=== PATIENT | female | born 1960 | race Caucasian/White ===

== ENCOUNTER 2017-03-26 09:11 | Day surgery (SDC) | payer BC, OTHER ==
--- NOTE | 2017-03-26 07:48 | HP ---
DATE OF SURGERY: 03/26/2017 HISTORY OF PRESENT ILLNESS: The patient is a 56 year-old with some persistent lump and discomfort upper abdominal area unclear whether just lipoma versus atypical unusual hernia location. She has increasing symptoms and been persistent. She desires definitive surgery. PAST MEDICAL HISTORY: She had some reflux. PAST SURGICAL HISTORY: Back surgery in the past. MEDICATIONS: Heartburn medication, Xanax and allergy medication. ALLERGIES: NKDA. FAMILY HISTORY: Negative in regards to this problem. SOCIAL HISTORY: Half pack per day smoker, denies alcohol abuse. REVIEW OF SYSTEMS: Twelve systems reviewed per admission assessment. No chest pains or palpitations other systems negative or noncontributory as above and per preadmission questionnaire. She was supposed to have a screening colonoscopy in the past but somehow she did not go through with that and has been rescheduled. PHYSICAL EXAMINATION: GENERAL: No acute distress. HEENT: Sclerae nonicteric. NECK: No JVD. CHEST: Equal excursion, nonlabored breathing. CVS: Regular rate and rhythm. ABDOMEN: Soft. Palpable lump upper abdomen whether is simply lipoma versus some sort of atypical hernia or other etiology is unclear at this point. It is increasing in size and causing her symptoms. She desires exploration of the area. No peritoneal signs. EXTREMITIES: No significant edema. NEURO: Alert, moving extremities symmetrically. No gross motor deficits noted. IMPRESSION: Abdominal wall nodule, question lipoma versus some sort of atypical hernia or other etiology. As she has had increased symptoms of this she would rather proceed with this procedure and reschedule the colonoscopy later. I feel she would benefit from abdominal wall exploration, excision of subcutaneous mass, possible hernia repair with mesh if indicated or present. General risk of bleeding or infection, risk of hematoma or seroma formation, risk if this is a lipoma-type density they usually do not occur but that she could get similar subcu mass or lipoma adjacent to or elsewhere on her body. She understands general risk of hematoma or seroma formation, wound infection possibly requiring packing. She understands should there be an occult hernia in this area with repair there is overall risk of aches, pains, burning or numbness possible long distance operator or chronic in nature, risk of hernia recurrence, risk if the mesh became infected likely would need to be removed, remote risk of mesh fracture or failure possibly creating issue with the viscera, other structures possibly requiring other procedures or ongoing morbidity but not limited to. She understands as well as general risk of anesthesia, deep venous thrombosis, pulmonary embolism, pneumonia and possibility that this may not improve her aches or pains, that she will have scar tissue in the area and may have a density from just scar formation afterwards. She understands all the above but not limited to, increasing in size and causing her discomfort. She prefers to go ahead and proceed with exploration, possible excision, possible hernia repair if hernia is noted, and possible hernia repair with mesh if indicated. Will proceed as an outpatient.
[~2017-03-26 09:11] MED LIST: Lactated Ringers 1,000 ML IV ONE; Sensorcaine 0.25% 10 ML ONE
[2017-03-26] MEDS ORDERED: Versed 2 MG/2 ML Injection IV ONE (09:12)
[2017-03-26] MEDS ORDERED: Zofran 4 MG/2 ML VIAL IV ONE (09:12)
[2017-03-26] MEDS ORDERED: ROBINUL IV ONE (09:12)
[2017-03-26] MEDS ORDERED: BLOXIVERZ IV ONE (09:12)
[2017-03-26] MEDS ORDERED: Zemuron 100 MG/10 ML IV ONE (09:12)
[2017-03-26] MEDS ORDERED: Quelicin Fliptop 200 MG/10 ML IV ONE (09:12)
[2017-03-26] MEDS ORDERED: DIPRIVAN 200 MG/20 ML IV ONE (09:12)
[2017-03-26] MEDS ORDERED: Decadron 4 MG INJ IV ONE (09:12)
[2017-03-26] MEDS ORDERED: SUBLIMAZE 250 MCG/5 ML IV ONE (09:12)
[2017-03-26] MEDS ORDERED: Lactated Ringers 1,000 ML IV SCH (10:00)
[2017-03-26] MEDS ORDERED: Lactated Ringers 1,000 ML IV ONE (10:00)
[2017-03-26] MEDS ORDERED: KEFZOL 1 GM ONE (11:17)
[2017-03-26] MEDS ORDERED: MORPHINE SULFATE 10 MG/ML ONE (12:21)
[2017-03-26] MEDS ORDERED: SUBLIMAZE 100 MCG/2 ML ONE (12:21)
[2017-03-26 14:14] VITALS: O2SAT 95
[2017-03-26 14:18] VITALS: BP 147/81; PULSE 59
--- NOTE | 2017-03-27 08:08 | OP ---
SURGERY DATE/TIME: 03/26/2017 1112 PREOPERATIVE DIAGNOSIS: Abdominal wall nodule or bulge question of occult hernia versus lymphoma. POSTOPERATIVE DIAGNOSIS: Incarcerated ventral hernia epigastrium. PROCEDURE: Abdominal wall exploration with repair of incarcerated epigastric ventral hernia with mesh. SURGEON: Dr. Andrew Perkins. ANESTHESIA: General. ESTIMATED BLOOD LOSS: Minimal. INDICATIONS: As noted above. Risks and benefits explained in detail and not limited to and consent obtained. DESCRIPTION OF PROCEDURE AND FINDINGS: The patient is taken to the operating room. General anesthesia was introduced. The site had been confirmed with the patient in the preoperative holding area. General anesthesia was induced. The abdomen was prepped and draped in usual sterile fashion. After official time out and no disagreement with planned procedure, a transverse incision made over the area. Inflator enlarged a little bit to allow for greater exposure. Dissection carried down. It was unclear if this was a lipoma density versus a little bit of denser fat tissue over the top. We came in with a deeper dissection over the deep incarcerated epigastric ventral hernia with incarcerated preperitoneal fat and omentum this is carefully circumferentially the minimal lipoma density over the top was passed off. Dissection carried circumferentially around this incarcerated epigastric ventral hernia in order to reduce this it required enlarging the defect slightly laterally. Finally the preperitoneal omental fat and incarcerated contents were able to finally be reduced back down in the abdomen. Once this was accomplished I felt the defect was large enough to warrant mesh repair to decrease risk of recurrence. 4.3 Ventralex mesh was then carefully inserted with straps pulled upwards. The tails of the mesh is nice and flat circumferentially around it. It was secured a centimeter apart around the edges with interrupted 0 Prolene this was accomplished with interrupted 0 PDS used to close the fascia overlying the mesh with interrupted 0 PDS. 0.25% Marcaine local injected along the fascial defect along the skin incision. The wound is irrigated out. Good hemostasis noted. Deep superficial subcu closed with 3-0 Vicryl, skin closed with 4-0 Vicryl, Steri-Strips and sterile dressing applied. The patient was given abdominal binder. There were no immediate complications. Findings discussed with the family out in the waiting area. She is to avoid heavy lifting, pushing, pulling for the next six weeks to decrease the risk of recurrence otherwise she was transferred to the recovery room and later to be discharged home.
== END 2017-03-26 13:55 | disposition home or self-care (01) ==
LOC: SDC 09:11
PROVIDERS: ATTEND Surgery
PROC: 0WUF0JZ Supplement Abdominal Wall with Synthetic Substitute, Open Approach (ICD-10-PCS; principal; 2017-03-26)
DX: K43.9 Ventral hernia without obstruction or gangrene (principal)
CPT/HCPCS: 00752; 36415; 88304; J0330; J0690; J1100; J2250; J2270; J2405; J2704; J2710; J3010; L0625

== ENCOUNTER 2020-10-27 08:11 | Day surgery (SDC) | payer OTHER ==
[2020-10-27] MEDS ORDERED: Depo-Medrol 40 MG/ML IM ONE (08:12)
[2020-10-27] MEDS ORDERED: BUPIVACAINE 0.5% VIAL IJ ONE (08:12)
[2020-10-27] MEDS ORDERED: DIPRIVAN 200 MG/20 ML IV ONE (09:04)
--- NOTE | 2020-10-27 10:08 | XRAY ---
19 seconds fluoroscopy time in surgery for right intra-articular and bursa injections of the right hip.
--- NOTE | 2020-10-27 10:19 | XRAY ---
Indication: Right hip injection. Intraoperative fluoroscopy provided for 19 seconds. 2 digital spot images submitted for interpretation demonstrates needle tip just lateral to the right femur head. Second needle tip lateral to the greater trochanter. Small amount of contrast injected for both needle tip placement. Correlate with intraoperative findings/report.
[2020-10-27] MEDS ORDERED: Lactated Ringers 1,000 ML IV ONE (16:08)
== END 2020-10-27 09:28 | disposition home or self-care (01) ==
LOC: SDC-PAIN 08:11
PROVIDERS: ATTEND Psychiatry & Neurology Pain Medicine
DX: M16.11 Unilateral primary osteoarthritis, right hip (principal); M70.61 Trochanteric bursitis, right hip; J44.9 Chronic obstructive pulmonary disease, unspecified; E78.5 Hyperlipidemia, unspecified; F41.1 Generalized anxiety disorder; K21.9 Gastro-esophageal reflux disease without esophagitis; J30.2 Other seasonal allergic rhinitis; Z79.899 Other long term (current) drug therapy
CPT/HCPCS: 20610; 73501; 77002; J1030; J2704; Q9966

== ENCOUNTER 2020-12-15 13:36 | Day surgery (SDC) | payer OTHER ==
[2020-12-15] MEDS ORDERED: BUPIVACAINE 0.5% VIAL IJ ONE (13:37)
[2020-12-15] MEDS ORDERED: Depo-Medrol 40 MG/ML IM ONE (13:37)
[2020-12-15] MEDS ORDERED: DIPRIVAN 200 MG/20 ML IV ONE (15:10)
[2020-12-15] MEDS ORDERED: Lactated Ringers 1,000 ML IV ONE (15:58)
--- NOTE | 2020-12-15 17:40 | XRAY ---
Indication: Bilateral SI joint injections. Intraoperative fluoroscopy provided for 23 seconds. 4 digital spot images submitted for interpretation demonstrates posterior needle tip projecting over the inferior left and right SI joints. Correlate with intraoperative findings/report.
--- NOTE | 2020-12-16 09:21 | XRAY ---
23 seconds fluoroscopy time in surgery for bilateral SI joint injections.
== END 2020-12-15 15:40 | disposition home or self-care (01) ==
LOC: SDC-PAIN 13:36
PROVIDERS: ATTEND Psychiatry & Neurology Pain Medicine
DX: M46.1 Sacroiliitis, not elsewhere classified (principal); F41.9 Anxiety disorder, unspecified; E78.5 Hyperlipidemia, unspecified; K21.9 Gastro-esophageal reflux disease without esophagitis; F32.9 Major depressive disorder, single episode, unspecified; M10.9 Gout, unspecified; J44.9 Chronic obstructive pulmonary disease, unspecified; Z79.899 Other long term (current) drug therapy
CPT/HCPCS: 27096; 72202; 77002; G0260; J1030; J2704

== ENCOUNTER 2021-02-02 09:55 | Day surgery (SDC) | payer OTHER ==
[2021-02-02] MEDS ORDERED: LIDOCAINE HCL 2% 100 MG/5 ML IJ ONE (09:56)
[2021-02-02] MEDS ORDERED: DIPRIVAN 200 MG/20 ML IV ONE (11:42)
[2021-02-02] MEDS ORDERED: Lactated Ringers 1,000 ML IV ONE ×2 (12:04→15:54)
--- NOTE | 2021-02-02 13:18 | XRAY ---
Indication: Right L3-S1 MBB. Intraoperative fluoroscopy provided for 11 seconds. Single digital spot image submitted for interpretation demonstrates posterior needle tips projecting over the expected right L3-S1 nerve roots. Correlate with intraoperative findings/report.
--- NOTE | 2021-02-02 13:21 | XRAY ---
11 seconds fluoroscopy time in surgery for right L3-S1 MBB.
== END 2021-02-02 12:27 | disposition home or self-care (01) ==
LOC: SDC-PAIN 09:55
PROVIDERS: ATTEND Psychiatry & Neurology Pain Medicine
DX: M47.816 Spondylosis without myelopathy or radiculopathy, lumbar region (principal); Z79.899 Other long term (current) drug therapy
CPT/HCPCS: 64493; 64494; 64495; 72020; 77002; J2704

== ENCOUNTER 2021-03-30 14:38 | Day surgery (SDC) | payer OTHER ==
[2021-03-30] MEDS ORDERED: Depo-Medrol 40 MG/ML IM ONE (14:39)
[2021-03-30] MEDS ORDERED: BUPIVACAINE 0.5% VIAL IJ ONE (14:39)
[2021-03-30] MEDS ORDERED: Xylocaine 1% Vial 30 ML PF IJ ONE (14:39)
[2021-03-30] MEDS ORDERED: Lactated Ringers 1,000 ML IV ONE (15:50)
--- NOTE | 2021-03-30 16:43 | XRAY ---
21 seconds fluoroscopy time in surgery for injection of the right SI joint.
--- NOTE | 2021-03-30 16:51 | XRAY ---
Indication: Right SI joint injection. Intraoperative fluoroscopy provided for 21 seconds. Single lateral digital spot image submitted for interpretation demonstrates posterior needle tip projecting mid sacrum. Correlate with intraoperative findings/report.
== END 2021-03-30 16:35 | disposition home or self-care (01) ==
LOC: SDC-PAIN 14:38
PROVIDERS: ATTEND Psychiatry & Neurology Pain Medicine
DX: M46.1 Sacroiliitis, not elsewhere classified (principal); Z79.899 Other long term (current) drug therapy
CPT/HCPCS: 27096; 72020; 77002; G0260; J1030; J2001

== ENCOUNTER 2021-04-13 14:33 | Day surgery (SDC) | payer OTHER ==
[2021-04-13] MEDS ORDERED: Sodium Chloride 0.9(Preservative Free) 10 ML IJ ONE (14:34)
[2021-04-13] MEDS ORDERED: Depo-Medrol 80 MG/ML IM ONE (14:34)
[2021-04-13] MEDS ORDERED: DIPRIVAN 200 MG/20 ML IV ONE (16:15)
[2021-04-13] MEDS ORDERED: Lactated Ringers 1,000 ML IV ONE (17:30)
--- NOTE | 2021-04-13 18:26 | XRAY ---
Indication: Caudal EVELYN. Intraoperative fluoroscopy provided for 22 seconds. 2 digital spot image submitted for interpretation demonstrates midline caudal needle tip projecting mid sacrum. Small amount of contrast injected for needle tip placement. Correlate with intraoperative findings/report.
--- NOTE | 2021-04-13 19:01 | XRAY ---
22 seconds of fluoroscopy was used in surgery for a caudal EVELYN.
== END 2021-04-13 16:42 | disposition home or self-care (01) ==
LOC: SDC-PAIN 14:33
PROVIDERS: ATTEND Psychiatry & Neurology Pain Medicine
DX: M54.16 Radiculopathy, lumbar region (principal); Z79.899 Other long term (current) drug therapy
CPT/HCPCS: 62323; 72020; 77003; J1040; J2704; Q9966

== ENCOUNTER 2021-04-25 17:34 | Emergency (ER) | payer OTHER ==
[2021-04-25 17:50] VITALS: BP 107/82; PULSE 78
--- NOTE | 2021-04-25 18:02 | ERPHSYRPT ---
- History of Present Illness Source: patient Exam Limitations: no limitations Patient Subjective Stated Complaint: pt has rash on bottom since sunday, she thinks it might be posion milly Triage Nursing Assessment: pt alert, resp easy, skin w/d/p, face mask in place, pt has reddenss to right bottuck Physician History: Lesion R buttock x 3 days. Pt denies fever/similar lesion in past. Son w poison milly Timing/Duration: other (3 days) Quality: itchy, painful Severity: mild Location: other (R buttock) Possible Causes: no cause identified Associated Symptoms: No blisters, No change in skin texture, No difficulty breathing, No edema, No fever, No flushing, No headache, No hives, No jaundice, No malaise, No numbness, No pallor, No paresthesia, No petechiae, No rash, No sore throat Allergies/Adverse Reactions: No Known Drug Allergies Allergy (Verified 04/25/21 17:46) Home Medications: ALPRAZolam 1 MG [Xanax 1 mg] 1 mg PO BID 03/21/17 [History] Hydrocodone Bit/Acetaminophen [Hydrocodon-Acetaminoph 7.5-325] 1 each PO Q6- 8HPRN PRN 03/21/17 [History] Loratadine 10 mg [Claritin 10 mg] 10 mg PO DAILY 03/21/17 [History] Omeprazole Magnesium [Prilosec Otc] 20 mg PO DAILY 03/21/17 [History] Famotidine 20 mg [Pepcid 20 MG] 20 mg PO BID 03/26/17 [History] Naproxen Sodium [Aleve] 2 tab PO DAILY PRN 03/26/17 [History] Allopurinol 300 mg [Zyloprim 300 mg] 1 ea DAILY 04/25/21 [History] Hx Tetanus, Diphtheria Vaccination/Date Given: No Hx Influenza Vaccination/Date Given: No Hx Pneumococcal Vaccination/Date Given: No Travel Risk - International Travel Have you traveled outside of the country in past 3 weeks: No - Vaccine Status Have you recieved a Covid-19 vaccination: Yes 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: [employer] - Review of Systems Constitutional: No Symptoms Eyes: No Symptoms Ears, Nose, & Throat: No Symptoms Respiratory: No Symptoms Cardiac: No Symptoms Abdominal/Gastrointestinal: No Symptoms Genitourinary Symptoms: No Symptoms Musculoskeletal: No Symptoms Neurological: No Symptoms Psychological: No Symptoms Endocrine: No Symptoms Hematologic/Lymphatic: No Symptoms Immunological/Allergic: No Symptoms - Past Medical History Pertinent Past Medical History: Yes Neurological History: No Pertinent History ENT History: No Pertinent History Cardiac History: High Cholesterol Respiratory History: No Pertinent History Endocrine Medical History: No Pertinent History Musculoskeletal History: Degenerative Disk Disease, Other GI Medical History: No Pertinent History History: No Pertinent History Psycho-Social History: Anxiety Female Reproductive Disorders: No Pertinent History Other Medical History: side and back pain daily 5 degenerative disks. Gout - Past Surgical History Past Surgical History: Yes Neuro Surgical History: No Pertinent History Cardiac: No Pertinent History Respiratory: No Pertinent History Gastrointestinal: No Pertinent History Genitourinary: No Pertinent History Musculoskeletal: Orthopedic Surgery Female Surgical History: Other Other Surgical History: back surgery, cyst off ovary,cyst off right breast - Social History Smoking Status: Current every day smoker How long have you smoked: 39 years Exposure to second hand smoke: Yes Drug Use: none Patient Lives Alone: No Significant Family History: no pertinent family hx - Female History Hx Last Menstrual Period: psot Hx Now: No - Nursing Vital Signs Nursing Vital Signs: Initial Vital Signs Temperature 97.0 F 04/25/21 17:35 Pulse Rate 78 04/25/21 17:35 Respiratory Rate 18 04/25/21 17:35 Blood Pressure 107/82 04/25/21 17:35 O2 Sat by Pulse Oximetry 95 04/25/21 17:35 Pain Scale Pain Intensity 9 WNL - Physical Exam General Appearance: no apparent distress Eye Exam: PERRL/EOMI, eyes nml inspection Ears, Nose, Throat Exam: normal ENT inspection, TMs normal, pharynx normal, moist mucous membranes Neck Exam: normal inspection, non-tender, supple, full range of motion, No meningismus, No mass, No Brudzinski, No Kernig's Respiratory Exam: normal breath sounds, lungs clear, airway intact, No respiratory distress Cardiovascular Exam: regular rate/rhythm, normal heart sounds, normal peripheral pulses, No murmur Gastrointestinal/Abdomen Exam: soft, normal bowel sounds, No tenderness Back Exam: normal inspection, normal range of motion, No CVA tenderness, No vertebral tenderness Extremity Exam: normal inspection, normal range of motion, pelvis stable Neurologic Exam: alert, oriented x 3, cooperative, 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, normal mood/affect, nml cerebellar function, nml station & gait, sensation nml Skin Exam: other (Erythematous, lesion R buttock/No edema/Most likely staph) Lymphatic Exam: No adenopathy SpO2 Interpretation: normal SpO2: 98 O2 Delivery: Room Air - Progress Counseled pt/family regarding: diagnosis, need for follow-up - Departure Departure Disposition: Home Clinical Impression: Staph skin infection Condition: Stable Critical Care Time: No Referrals: TONE CONNER [Primary Care Provider] - Instructions: Methicillin-Resistant Staphylococcus aureus (MRSA) Additional Instructions: Wash area twice a day Start Doxycycline twice a day for 1 wk Follow up with your family MD Return to ER for increasing redness/swelling/temperature greater than 100.5 Prescriptions: Doxycycline Monohydrate 100 mg PO BID #14 tablet
[2021-04-25 21:10] VITALS: O2SAT 98
== END 2021-04-25 18:48 | disposition home or self-care (01) ==
LOC: ED 17:34
DX: L08.89 Other specified local infections of the skin and subcutaneous tissue (principal); A49.02 Methicillin resistant Staphylococcus aureus infection, unspecified site
CPT/HCPCS: 99283

== ENCOUNTER 2024-07-06 13:10 | Emergency (ER) | payer BC, OTHER ==
[2024-07-06 13:31] VITALS: TEMP 96.7; O2SAT 99
[2024-07-06] MEDS ORDERED: DELTASONE 20 MG ONE (13:37)
[2024-07-06] MEDS: DELTASONE 20 MG PO ONE (13:37)
--- NOTE | 2024-07-06 13:39 | ERPHSYRPT ---
- History of Present Illness Source: patient Exam Limitations: no limitations Patient Subjective Stated Complaint: pt here for pain to left upper since may, had xray last week and showed artritis, pt denies any injury. Triage Nursing Assessment: pt alert, walked in with family, alert, resp easy, skin w/d/p. 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 Lateral raise and anterior raise makes it worse.She has had it worked up. She has got an x-ray that shows some arthritic changes. This symptoms came on somewhat acutely. There is no trauma. She woke up with it 1 day. The pain is mainly in the shoulder. It is anterior and posterior. She has not had problems like this in the past.She is already on anti-inflammatories and hydrocodone. Allergies/Adverse Reactions: No Known Drug Allergies Allergy (Verified 07/06/24 13:20) Home Medications: ALPRAZolam 1 MG [Xanax 1 mg] 1 mg PO BID 03/21/17 [History] Hydrocodone/Acetaminophen [Hydrocodon-Acetaminoph 7.5-325] 1 each PO Q6-8HPRN PRN 03/21/17 [History] Loratadine 10 mg [Claritin 10 mg] 10 mg PO DAILY 03/21/17 [History] Omeprazole Magnesium [Prilosec Otc] 20 mg PO DAILY 03/21/17 [History] Famotidine 20 mg [Pepcid 20 MG] 20 mg PO BID 03/26/17 [History] Naproxen Sodium [Aleve] 2 tab PO DAILY PRN 03/26/17 [History] Allopurinol 300 mg [Zyloprim 300 mg] 1 ea DAILY 04/25/21 [History] Hx Tetanus, Diphtheria Vaccination/Date Given: No Hx Influenza Vaccination/Date Given: No Hx Pneumococcal Vaccination/Date Given: No Immunizations Up to Date: Yes Travel Risk - International Travel Have you traveled outside of the country in past 3 weeks: No - Emerging Infectious Disease Are you exhibiting symptoms associated with any current EIDs: No - Review of Systems Constitutional: No Symptoms Eyes: No Symptoms Musculoskeletal: Arthralgias Skin: No Symptoms Neurological: No Symptoms All Other Systems: Reviewed and Negative - Past Medical History Pertinent Past Medical History: Yes Neurological History: No Pertinent History ENT History: No Pertinent History Cardiac History: High Cholesterol Respiratory History: No Pertinent History Endocrine Medical History: No Pertinent History Musculoskeletal History: Degenerative Disk Disease, Other GI Medical History: No Pertinent History History: No Pertinent History Psycho-Social History: Anxiety Female Reproductive Disorders: No Pertinent History Other Medical History: side and back pain daily 5 degenerative disks,gout. Gout - Past Surgical History Past Surgical History: Yes Neuro Surgical History: No Pertinent History Cardiac: No Pertinent History Respiratory: No Pertinent History Gastrointestinal: No Pertinent History Genitourinary: No Pertinent History Musculoskeletal: Orthopedic Surgery Female Surgical History: Other Other Surgical History: back surgery, cyst off ovary,cyst off right breast Significant Family History: no pertinent family hx - Social History Smoking Status: Current every day smoker How long have you smoked: 39 years Exposure to second hand smoke: Yes Drug Use: none Patient Lives Alone: No - Social Determinants of Health Will the patient participate in the screening: Declined to provide - Nursing Vital Signs Nursing Vital Signs: Initial Vital Signs Temperature 96.7 F 07/06/24 13:29 Pulse Rate 73 07/06/24 13:29 Respiratory Rate 18 07/06/24 13:29 Blood Pressure 122/82 07/06/24 13:29 O2 Sat by Pulse Oximetry 99 07/06/24 13:29 Pain Scale Pain Intensity 9 - Physical Exam General Appearance: no apparent distress Eyes, Ears, Nose, Throat Exam: normal ENT inspection Shoulder Exam: limited ROM (Limited range of motion with lateral and anterior raise. 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 Also on the differential was impingement. I think that it has frozen shoulder due to the onset as well as the diffuse nature of the pain instead of being strictly anterior.I do not need to repeat an x-ray. I went to give her some prednisone and she is going to stop her NSAIDs. She is to follow-up with her primary doctor for physical therapy referral 07/06/24 13:37 Medical Desision Making - Diagnostic Testing Diagnostic test were ordered, analyzed, and reviewed by me: No - Risk of complications Minimal Risk: Minimal risk of morbidity - Departure Departure Disposition: Home Clinical Impression: Frozen shoulder syndrome Condition: Stable Critical Care Time: No Referrals: TONE CONNER [Primary Care Provider] - Follow up/PCP as directed Instructions: Frozen Shoulder (DC) Prescriptions: Prednisone 20 mg [Deltasone 20 mg] 20 mg PO TID #12 tablet
[2024-07-06 13:45] VITALS: BP 119/77; PULSE 54; RESP 16
== END 2024-07-06 14:07 | disposition home or self-care (01) ==
LOC: ED 13:10
DX: M75.02 Adhesive capsulitis of left shoulder (principal); M25.512 Pain in left shoulder
CPT/HCPCS: 99281; A9270-GY

== ENCOUNTER 2024-07-12 15:51 | Emergency (ER) | payer BC ==
[2024-07-12 16:07] VITALS: RESP 20; TEMP 96.4
--- NOTE | 2024-07-12 16:10 | ERPHSYRPT ---
- History of Present Illness Source: patient Exam Limitations: no limitations Patient Subjective Stated Complaint: Sore throat Triage Nursing Assessment: Patient ambulated back to ED and transferred self to bed. Patient A+O X3. Patient's skin pink, warm and dry. Patient complains of sore throat 4/10 and non productive cough since yesterday. Patient states she was exposed to someone with covid on [place]. Prearrival Treatment: no prearrival treatment Associated Symptoms: denies symptoms Hx Tetanus, Diphtheria Vaccination/Date Given: No Hx Influenza Vaccination/Date Given: No Hx Pneumococcal Vaccination/Date Given: No Immunizations Up to Date: Yes <JEET CHACON - Last Filed: 07/12/24 16:51> <GERMAN MARINA - Last Filed: 07/12/24 17:53> - History of Present Illness Time Seen by Provider: 07/12/24 16:09 Physician History: Patient complains of sore throat 4/10 and non productive cough since yesterday. Patient states she was exposed to someone with covid on [place]. (OSWALDO,JEET) Allergies/Adverse Reactions: No Known Drug Allergies Allergy (Verified 07/12/24 15:58) Home Medications: ALPRAZolam 1 MG [Xanax 1 mg] 1 mg PO BID 03/21/17 [History] Hydrocodone/Acetaminophen [Hydrocodon-Acetaminoph 7.5-325] 1 each PO Q6-8HPRN PRN 03/21/17 [History] Loratadine 10 mg [Claritin 10 mg] 10 mg PO DAILY 03/21/17 [History] Omeprazole Magnesium [Prilosec Otc] 20 mg PO DAILY 03/21/17 [History] Famotidine 20 mg [Pepcid 20 MG] 20 mg PO BID 03/26/17 [History] Naproxen Sodium [Aleve] 2 tab PO DAILY PRN 03/26/17 [History] Allopurinol 300 mg [Zyloprim 300 mg] 1 ea DAILY 04/25/21 [History] Travel Risk - International Travel Have you traveled outside of the country in past 3 weeks: No - Emerging Infectious Disease Are you exhibiting symptoms associated with any current EIDs: Yes <OSWALDO - Last Filed: 07/12/24 16:51> - Review of Systems Constitutional: No Fever, No Chills Eyes: No Symptoms Ears, Nose, & Throat: No Symptoms, Throat Pain Respiratory: No Cough, No Dyspnea Cardiac: No Chest Pain, No Edema, No Syncope Abdominal/Gastrointestinal: No Abdominal Pain, No Nausea, No Vomiting, No Diarrhea Genitourinary Symptoms: No Dysuria Musculoskeletal: No Back Pain, No Neck Pain Skin: No Rash Neurological: No Dizziness, No Focal Weakness, No Sensory Changes Psychological: No Symptoms Endocrine: No Symptoms All Other Systems: Reviewed and Negative <OSWALDO, - Last Filed: 07/12/24 16:51> - Past Medical History Pertinent Past Medical History: Yes Neurological History: No Pertinent History ENT History: No Pertinent History Cardiac History: High Cholesterol Respiratory History: No Pertinent History Endocrine Medical History: No Pertinent History Musculoskeletal History: Degenerative Disk Disease, Other GI Medical History: No Pertinent History History: No Pertinent History Psycho-Social History: Anxiety Female Reproductive Disorders: No Pertinent History Other Medical History: side and back pain daily 5 degenerative disks,gout. Gout - Past Surgical History Past Surgical History: Yes Neuro Surgical History: No Pertinent History Cardiac: No Pertinent History Respiratory: No Pertinent History Gastrointestinal: No Pertinent History Genitourinary: No Pertinent History Musculoskeletal: Orthopedic Surgery Female Surgical History: Other Other Surgical History: back surgery, cyst off ovary,cyst off right breast Significant Family History: no pertinent family hx - Social History Smoking Status: Current every day smoker How long have you smoked: 39 years Exposure to second hand smoke: Yes Drug Use: none Patient Lives Alone: No - Social Determinants of Health Will the patient participate in the screening: Yes Do you worry about a steady place to live?: No Do you have any problems with any of the following?: No known problems In the past 12 months,have you had to go without utilities?: No Transportation Issues: No Has anyone in your support network made you feel unsafe?: No Have you or anyone in your house had to go without enough: No <OSWALDO, - Last Filed: 07/12/24 16:51> - Physical Exam General Appearance: no apparent distress, alert Eye Exam: bilateral eye: PERRL, EOMI Nasal Exam: normal inspection Throat Exam: pharynx normal, moist mucus membranes, No tonsillar exudate Neck Exam: supple Cardiovascular/Respiratory Exam: normal breath sounds, regular rate/rhythm Abdominal Exam: non-tender, soft Neurologic Exam: alert, oriented x 3, sensation nml, No motor deficits Skin Exam: normal color, warm, dry SpO2: 96 <MALIK CHACONSH - Last Filed: 07/12/24 16:51> - Nursing Vital Signs Nursing Vital Signs: Initial Vital Signs Temperature 96.4 F 07/12/24 16:00 Pulse Rate 88 07/12/24 16:00 Respiratory Rate 20 07/12/24 16:00 Blood Pressure 117/74 07/12/24 16:00 O2 Sat by Pulse Oximetry 96 07/12/24 16:00 Pain Scale Pain Intensity 4 - Course Nursing assessment & vital signs reviewed: Yes <OSWALDO - Last Filed: 07/12/24 16:51> Lab/Rad Data: Laboratory Results 07/12/24 Range/Units 16:00 Influenza Type A Ag Pending Influenza Type B Ag Pending RSV (PCR) Pending SARS-CoV-2 (PCR) Pending Group A Strep Antibody NOT DETECTED (NEGATIVE) - Progress Progress: unchanged Counseled pt/family regarding: lab results, diagnosis, need for follow-up <GERMAN MARINA - Last Filed: 07/12/24 17:53> - Progress Progress Note: 07/12/24 17:52 I interpreted the patient's laboratory data results. Based on the laboratory data results, the patient has no acute, emergent medical issue (GERMAN MARINA) Medical Desision Making - Diagnostic Testing Diagnostic test were ordered, analyzed, and reviewed by me: Yes - Risk of complications Minimal Risk: Minimal risk of morbidity <GERMAN MARINA - Last Filed: 07/12/24 17:53> <JEET CHACON - Last Filed: 07/12/24 16:51> - Departure Departure Disposition: Home Critical Care Time: No <GERMAN MARINA - Last Filed: 07/12/24 17:53> - Departure Clinical Impression: Pharyngitis Condition: Stable Referrals: TONE CONNER [Primary Care Provider] - Follow up/PCP as directed Additional Instructions: Drink plenty of fluids. Use Tylenol and ibuprofen, if there are no contraindications, for pain and fever control. Call your primary care provider on 07/14/2024, to make arranges for follow-up appointment for further evaluation management
[2024-07-12 16:31] LABS: Group A Strep NOT DETECTED (NEGATIVE)
[2024-07-12 16:41] LABS: INFLUENZA A NEGATIVE (NEGATIVE); INFLUENZA B NEGATIVE (NEGATIVE); RESPIRATORY SYNCTIAL VIRUS NEGATIVE (NEGATIVE); SARS-CoV-2 Xpert Express NEGATIVE (NEGATIVE)
[2024-07-12 17:47] VITALS: BP 101/68; PULSE 82; O2SAT 97
== END 2024-07-12 17:54 | disposition home or self-care (01) ==
LOC: ED 15:51
DX: J02.9 Acute pharyngitis, unspecified (principal)
CPT/HCPCS: 0241U; 87651; 99283; 99282

== ENCOUNTER 2024-07-20 17:43 | Emergency (ER) | payer BC ==
[2024-07-20 18:03] VITALS: TEMP 97
--- NOTE | 2024-07-20 18:15 | ERPHSYRPT ---
- History of Present Illness Time Seen by Provider: 07/20/24 18:13 Source: patient Exam Limitations: no limitations Patient Subjective Stated Complaint: PT HERE TO FIND OUT IF SHE HAS COVID, SHE CO ACHES, FEVER,HEADACHES,NAUSEA Triage Nursing Assessment: PT ALERT, WALKED IN, RESP EASY, NO COUGH, FACE MASK IN PLACE, MOVES ALL EXT WELL Physician History: The patient presents with symptoms suggestive of COVID-19, including cough, sore throat, fever, and body aches. Symptoms began last night, and they describe feeling 'super sick'. They suspect COVID-19 due to recent contact with their ex-partner who had COVID-19 about a week ago. They have not measured their fever but feel they have one. They have taken Tylenol for symptom relief and use [id number] cold medications like Dayquil and Mucinex D for cough and decongestion. Additionally, they report nausea, vomiting, and diarrhea. They have ongoing issues with a previously diagnosed frozen shoulder, describing the condition as 'horrible'. They experienced temporary relief with medication but did not pursue physical therapy, and the symptoms have since returned. They have not received any injections for the shoulder. Timing/Duration: yesterday Cough Quality/Degree: moderate, dry cough Possible Cause: no prior episodes Modifying Factors: Worsens With: nothing Associated Symptoms: chills, cough, facial pain, muscle aches, nasal congestion, sore throat, No fever, No earache, No shortness of breath Allergies/Adverse Reactions: No Known Drug Allergies Allergy (Verified 07/20/24 18:00) Home Medications: RX: ALPRAZolam 1 MG [Xanax 1 mg] 1 mg PO BID 03/21/17 [History] RX: Hydrocodone/Acetaminophen [Hydrocodon-Acetaminoph 7.5-325] 1 each PO Q6- 8HPRN PRN 03/21/17 [History] RX: Loratadine 10 mg [Claritin 10 mg] 10 mg PO DAILY 03/21/17 [History] RX: Omeprazole Magnesium [Prilosec Otc] 20 mg PO DAILY 03/21/17 [History] RX: Famotidine 20 mg [Pepcid 20 MG] 20 mg PO BID 03/26/17 [History] RX: Allopurinol 300 mg [Zyloprim 300 mg] 1 ea DAILY 04/25/21 [History] Hx Tetanus, Diphtheria Vaccination/Date Given: No Hx Influenza Vaccination/Date Given: No Hx Pneumococcal Vaccination/Date Given: No Immunizations Up to Date: Yes Travel Risk - International Travel Have you traveled outside of the country in past 3 weeks: No - Emerging Infectious Disease Are you exhibiting symptoms associated with any current EIDs: Yes Symptoms: Headaches/Body Aches/ - Review of Systems All Other Systems: Reviewed and Negative - Past Medical History Pertinent Past Medical History: Yes Neurological History: No Pertinent History ENT History: No Pertinent History Cardiac History: High Cholesterol Respiratory History: No Pertinent History Endocrine Medical History: No Pertinent History Musculoskeletal History: Arthritis, Degenerative Disk Disease, Other GI Medical History: No Pertinent History History: No Pertinent History Psycho-Social History: Anxiety Female Reproductive Disorders: No Pertinent History Other Medical History: side and back pain daily 5 degenerative disks,gout. Gout - Past Surgical History Past Surgical History: Yes Neuro Surgical History: No Pertinent History Cardiac: No Pertinent History Respiratory: No Pertinent History Gastrointestinal: No Pertinent History Genitourinary: No Pertinent History Musculoskeletal: Orthopedic Surgery Female Surgical History: Other Other Surgical History: back surgery, cyst off ovary,cyst off right breast Significant Family History: no pertinent family hx - Social History Smoking Status: Current every day smoker How long have you smoked: 39 years Exposure to second hand smoke: Yes Drug Use: none Patient Lives Alone: No - Social Determinants of Health Will the patient participate in the screening: Yes Do you worry about a steady place to live?: No Do you have any problems with any of the following?: No known problems In the past 12 months,have you had to go without utilities?: No Transportation Issues: No Has anyone in your support network made you feel unsafe?: No Have you or anyone in your house had to go without enough: No - Nursing Vital Signs Nursing Vital Signs: Initial Vital Signs Temperature 97.0 F 07/20/24 18:02 Pulse Rate 98 H 07/20/24 18:02 Respiratory Rate 18 07/20/24 18:02 Blood Pressure 115/80 07/20/24 18:02 O2 Sat by Pulse Oximetry 97 07/20/24 18:02 Pain Scale Pain Intensity 8 - Physical Exam General Appearance: no apparent distress Eye Exam: eyes nml inspection Ears, Nose, Throat Exam: pharyngeal erythema, No tonsillar exudate Neck Exam: normal inspection, supple, full range of motion Respiratory Exam: normal breath sounds, lungs clear, airway intact, No respiratory distress Cardiovascular Exam: regular rate/rhythm, capillary refill <2 sec Neurologic Exam: alert, oriented x 3, cooperative Skin Exam: normal color, warm, dry, No rash SpO2 Interpretation: normal SpO2: 95 O2 Delivery: Room Air - Course Nursing assessment & vital signs reviewed: Yes Ordered Tests: Medication Summary Generic Name Dose Route Start Last Admin Trade Name Freq PRN Reason Stop Dose Admin Guaifenesin 1,200 mg 07/20/24 22:00 07/20/24 18:30 Guaifenesin 600 Mg Tablet Er PO 08/19/24 21:59 1,200 mg BID NIKOLAS Administration Discontinued Medications Generic Name Dose Route Start Last Admin Trade Name Freq PRN Reason Stop Dose Admin Prednisone 60 mg 07/20/24 18:16 07/20/24 18:30 Prednisone 20 Mg Tablet PO 07/20/24 18:17 60 mg STAT ONE Administration Prednisone Confirm 07/20/24 18:29 Prednisone 20 Mg Tablet Administered 07/20/24 18:30 Dose 60 mg .ROUTE .STS4 [employer]-Inviragen ONE Lab/Rad Data: Laboratory Results 07/20/24 Range/Units 18:00 Influenza Type A Ag POSITIVE A (NEGATIVE) Influenza Type B Ag NEGATIVE (NEGATIVE) RSV (PCR) NEGATIVE (NEGATIVE) SARS-CoV-2 (PCR) NEGATIVE (NEGATIVE) - Progress Progress: improved Air Movement: good Progress Note: 07/20/24 18:15 Suspected Viral Illness (COVID-19, Influenza, or RSV) Acute onset of cough, sore throat, fever, and body aches since last night with recent exposure to a COVID-19 positive individual. Differential diagnosis includes COVID-19, Influenza, and RSV. Clear lung examination reduces likelihood of pneumonia. Candidate for Tamiflu if Influenza is confirmed. Most likely a viral illness. - Order COVID-19, Influenza, and RSV tests - Recommend symptomatic treatment with acetaminophen for fever and myalgia - Advise use of [id number] cold medicine such as Dayquil or Mucinex D for cough and congestion - Encourage hydration - Discuss potential use of Tamiflu if Influenza is confirmed Flu A positive, patient would like tamiflu, 75mg capsule given. Will DC home on Tamiflu 75mg BID x 5 days and Prednisone 20mg QD x 4 days. Blood Culture(s) Obtained: No Antibiotics given: No Counseled pt/family regarding: lab results, diagnosis Medical Desision Making - Diagnostic Testing Diagnostic test were ordered, analyzed, and reviewed by me: Yes Radiological Interpretation: Interpreted by me - Risk of complications The pt has a mod risk of morbidity or mortality based on: Need for prescription drug management - Departure Departure Disposition: Home Clinical Impression: Influenza A Condition: Good Critical Care Time: No Referrals: TONE CONNER [Primary Care Provider] - Follow up/PCP as directed Instructions: Flu in adults - Discharge instructions Prescriptions: predniSONE [Prednisone] 20 mg PO DAILY 4 Days #4 tablet Oseltamivir Phosphate [Tamiflu] 75 mg PO BID #9 cap
[2024-07-20] MEDS ORDERED: Mucinex 600MG ER Tabs PO ONE (18:23)
[2024-07-20] MEDS ORDERED: DELTASONE 20 MG ONE (18:29)
[2024-07-20] MEDS: DELTASONE 20 MG PO ONE (18:30)
[2024-07-20] MEDS: Mucinex 600MG ER Tabs PO SCH (18:30)
[2024-07-20 18:55] LABS: INFLUENZA B NEGATIVE (NEGATIVE); RESPIRATORY SYNCTIAL VIRUS NEGATIVE (NEGATIVE); SARS-CoV-2 Xpert Express NEGATIVE (NEGATIVE)
[2024-07-20 18:58] LABS: INFLUENZA A POSITIVE (NEGATIVE)
[2024-07-20] MEDS ORDERED: Tamiflu 75MG Capsule PO ONE (19:35)
[2024-07-20] MEDS: Tamiflu 75MG Capsule PO ONE (19:36)
[2024-07-20 20:14] VITALS: BP 99/65; PULSE 82; RESP 16; O2SAT 94
== END 2024-07-20 20:18 | disposition home or self-care (01) ==
LOC: ED 17:43
DX: J10.1 Influenza due to other identified influenza virus with other respiratory manifestations (principal); R05.1 Acute cough; M79.10 Myalgia, unspecified site; E78.5 Hyperlipidemia, unspecified; Z79.52 Long term (current) use of systemic steroids; Z79.899 Other long term (current) drug therapy; Z72.0 Tobacco use
CPT/HCPCS: 0241U; 99284; 99283; A9270-GY

== ENCOUNTER 2025-02-05 09:25 | Emergency (ER) | payer MEDICARE ==
[2025-02-05 09:43] VITALS: PULSE 66; TEMP 97.8
[2025-02-05] MEDS ORDERED: MORPHINE SULFATE 4 MG INJ ONE (09:48)
[2025-02-05] MEDS ORDERED: Norflex 60 MG/2 ML ONE (09:48)
[2025-02-05] MEDS: Norflex 60 MG/2 ML IM ONE (09:51)
[2025-02-05] MEDS: MORPHINE SULFATE 4 MG INJ IM ONE (09:51)
[2025-02-05 11:07] VITALS: BP 130/84
--- NOTE | 2025-02-05 11:08 | ERPHSYRPT ---
- History of Present Illness Time Seen by Provider: 02/05/25 09:32 Patient Subjective Stated Complaint: pt lifted her 20lb grandchild yesterday and injured her left lower back Triage Nursing Assessment: Pt brought to the ER by her ex , hypertensive, rates pain as 10/10, pulses normal, skin n/w/d, reports pain began as she picked her granddaughter up, no difficulty breathing, denies chest pain, doesn't appear to be in any distress Physician History: 64 years old female with history of chronic back pain presented in the ER with complaint of left sacroiliac area pain after she lifted her 20 pound grandchild yesterday. Patient reports moderate to severe sharp shooting pain, aggravated with ambulation, twisting around and partially relieved with being still. She has been taking oral pain medication with no significant relief. No numbness weakness of lower extremities, no loss of bowel or bladder control or saddle anesthesia. Denies any midline back pain. Allergies/Adverse Reactions: No Known Drug Allergies Allergy (Verified 02/05/25 09:36) Home Medications: ALPRAZolam 1 MG [Xanax 1 mg] 1 mg PO BID 03/21/17 [History] Hydrocodone/Acetaminophen [Hydrocodon-Acetaminoph 7.5-325] 1 each PO Q6-8HPRN PRN 03/21/17 [History] Omeprazole Magnesium [Prilosec Otc] 20 mg PO DAILY 03/21/17 [History] Allopurinol 300 mg [Zyloprim 300 mg] 300 mg PO DAILY 04/25/21 [History] Pravastatin Sodium 40 mg PO DAILY 02/05/25 [History] Valacyclovir HCl [Valacyclovir] 500 mg PO BID 02/05/25 [History] Hx Tetanus, Diphtheria Vaccination/Date Given: No Hx Influenza Vaccination/Date Given: No Hx Pneumococcal Vaccination/Date Given: No Travel Risk - International Travel Have you traveled outside of the country in past 3 weeks: No - Emerging Infectious Disease Are you exhibiting symptoms associated with any current EIDs: No Symptoms: Headaches/Body Aches/ - Review of Systems Constitutional: No Symptoms Ears, Nose, & Throat: No Symptoms Respiratory: No Symptoms Cardiac: No Symptoms Abdominal/Gastrointestinal: No Symptoms Genitourinary Symptoms: No Symptoms Musculoskeletal: Arthralgias, Back Pain Skin: No Symptoms Neurological: No Symptoms Endocrine: No Symptoms Hematologic/Lymphatic: No Symptoms - Past Medical History Pertinent Past Medical History: Yes Neurological History: No Pertinent History ENT History: No Pertinent History Cardiac History: High Cholesterol Respiratory History: No Pertinent History Endocrine Medical History: No Pertinent History Musculoskeletal History: Arthritis, Degenerative Disk Disease, Other GI Medical History: No Pertinent History History: No Pertinent History Psycho-Social History: Anxiety Female Reproductive Disorders: No Pertinent History Other Medical History: side and back pain daily 5 degenerative disks,gout. Gout - Past Surgical History Past Surgical History: Yes Neuro Surgical History: No Pertinent History Cardiac: No Pertinent History Respiratory: No Pertinent History Gastrointestinal: No Pertinent History Genitourinary: No Pertinent History Musculoskeletal: Orthopedic Surgery Female Surgical History: Other Other Surgical History: back surgery, cyst off ovary,cyst off right breast Significant Family History: no pertinent family hx - Social History Smoking Status: Current every day smoker How long have you smoked: 39 years Exposure to second hand smoke: Yes Drug Use: none - Social Determinants of Health Will the patient participate in the screening: Yes Do you worry about a steady place to live?: No Do you have any problems with any of the following?: No known problems In the past 12 months,have you had to go without utilities?: No Transportation Issues: No Has anyone in your support network made you feel unsafe?: No Have you or anyone in your house had to go w/o enough food: No - Nursing Vital Signs Nursing Vital Signs: Initial Vital Signs Temperature 97.8 F 02/05/25 09:31 Pulse Rate 66 02/05/25 09:31 Blood Pressure 142/87 02/05/25 09:31 O2 Sat by Pulse Oximetry 98 02/05/25 09:31 Pain Scale Pain Intensity [Left Lower 10 Back] Pain Intensity 10 - Physical Exam General Appearance: no apparent distress, alert Eye Exam: PERRL/EOMI Neck Exam: normal inspection, full range of motion Respiratory Exam: normal breath sounds, lungs clear Cardiovascular Exam: regular rate/rhythm, normal heart sounds Gastrointestinal Exam: soft, normal bowel sounds, No tenderness Back Exam: normal inspection, muscle spasm, point tenderness (Left sacroiliac area), other (Straight leg raising test positive at 60 degree elevation on the left), No vertebral tenderness Extremity Exam: normal inspection, normal range of motion, pelvis stable Neurologic Exam: alert, cooperative, nml cerebellar function, sensation nml, No motor deficits Skin Exam: normal color SpO2 Interpretation: normal SpO2: 98 O2 Delivery: Room Air Ordered Tests: Medication Summary Discontinued Medications Generic Name Dose Route Start Last Admin Trade Name Jazmin PRN Reason Stop Dose Admin Morphine Sulfate 4 mg 02/05/25 09:46 02/05/25 09:51 Morphine Sulfate 4 Mg/Ml Injection IM 02/05/25 09:47 4 mg STAT ONE Administration Morphine Sulfate Confirm 02/05/25 09:48 Morphine Sulfate 4 Mg/Ml Injection Administered 02/05/25 09:49 Dose 4 mg .ROUTE .STK-MED ONE Orphenadrine Citrate 60 mg 02/05/25 09:46 02/05/25 09:51 Orphenadrine Citrate 60 Mg/2 Ml Vial IM 02/05/25 09:47 60 mg STAT ONE Administration Orphenadrine Citrate Confirm 02/05/25 09:48 Orphenadrine Citrate 60 Mg/2 Ml Vial Administered 02/05/25 09:49 Dose 60 mg .ROUTE .STK-MED ONE - Progress Progress: improved, pain not gone completely, re-examined Progress Note: 02/05/25 11:03 Differential diagnosis: Acute on chronic low back pain, lumbosacral strain, lumbar fracture/subluxation/disc herniation/sciatica 64-year-old is evaluated for left lower back pain after she lifted her grandson yesterday with no radiation and negative neuroexam in lower extremities. No midline tenderness. She is given morphine and Norflex, on reevaluation her pain is significantly improved. Neuroexam remained negative in lower extremities with no cauda equina symptoms. I believe patient has low back strain, will give Robaxin to go home along with pain medication which she is already taking. Do not think she needs any imaging Discussed signs symptoms of worsening needing return to ER which she seems understanding. Stable for discharge Complexity of problems addressed: Moderate acute Complexity of data reviewed/analyzed: Limited Risk of complication: Low Counseled pt/family regarding: diagnosis, need for follow-up Medical Desision Making - Independent Historian Additional History obtained from: Spouse - Diagnostic Testing Diagnostic test were ordered, analyzed, and reviewed by me: No - Risk of complications The pt has a mod risk of morbidity or mortality based on: Need for prescription drug management - Departure Departure Disposition: Home Clinical Impression: Acute exacerbation of chronic low back pain, Strain of muscle, fascia and tendon of lower back, initial encounter Condition: Stable Critical Care Time: No Referrals: TONE CONNER [Primary Care Provider, [facility]] - Follow up with PCP 1 day Instructions: Low Back Pain (DC) Additional Instructions: Continue with your current pain medications. Follow-up with primary care for reevaluation. Return to ER for worsening of pain or if having numbness/weakness to lower extremities/loss of bowel or bladder control/saddle anesthesia. Prescriptions: Methocarbamol [Robaxin] 750 mg PO QID 10 Days #30 tablet
[2025-02-05 11:09] VITALS: O2SAT 98
== END 2025-02-05 11:11 | disposition home or self-care (01) ==
LOC: ED 09:25
DX: G89.29 Other chronic pain (principal); S39.012A Strain of muscle, fascia and tendon of lower back, initial encounter; X50.0XXA Overexertion from strenuous movement or load, initial encounter; Z79.899 Other long term (current) drug therapy; Z72.0 Tobacco use

== ENCOUNTER 2025-02-06 21:46 | Emergency (ER) | payer MEDICARE ==
[2025-02-06 22:03] VITALS: TEMP 98.3
--- NOTE | 2025-02-06 22:05 | ERPHSYRPT ---
- History of Present Illness Time Seen by Provider: 02/06/25 22:05 Source: patient Exam Limitations: no limitations Patient Subjective Stated Complaint: pt states that she was picking her granddaughter and felt something pull in her back Triage Nursing Assessment: pt came into the er via ambulance; pt was transfer to cot per ems staff; pt is axo x4; c/o back pain; pt states 10/10 pain to left lower back; decreased ROM to back; skin PDW; no respiratory distress present; vitals wnl Physician History: Patient presents with left sided back/flank pain that radiates to groin. Patient describes as a burning pain. No pain, numbness or tingling down the leg. Timing/Duration: day(s) (3) Method of Injury: bending Quality: burning Back Pain Location: paraspinous muscles (radiates left flank to groin) Severity of Pain-Max: severe Severity of Pain-Current: severe Modifying Factors: Worsens With: movement Associated Symptoms: constipation, lower back pain, No fever, No urinary incontinence, No loss of bowel control, No nausea, No vomiting, No problems urinating, No numbness in legs/feet, No weakness, No sensory/motor loss, No tingling in legs/feet Previous symptoms: same symptoms as today Allergies/Adverse Reactions: No Known Drug Allergies Allergy (Verified 02/06/25 21:50) Home Medications: ALPRAZolam 1 MG [Xanax 1 mg] 1 mg PO BID 03/21/17 [History] Omeprazole Magnesium [Prilosec Otc] 20 mg PO DAILY 03/21/17 [History] Allopurinol 300 mg [Zyloprim 300 mg] 300 mg PO DAILY 04/25/21 [History] Pravastatin Sodium 40 mg PO DAILY 02/05/25 [History] Valacyclovir HCl [Valacyclovir] 500 mg PO BID 02/05/25 [History] Hx Tetanus, Diphtheria Vaccination/Date Given: No Hx Influenza Vaccination/Date Given: No Hx Pneumococcal Vaccination/Date Given: No Travel Risk - International Travel Have you traveled outside of the country in past 3 weeks: No - Emerging Infectious Disease Are you exhibiting symptoms associated with any current EIDs: No Symptoms: Headaches/Body Aches/ - Review of Systems All Other Systems: Reviewed and Negative - Past Medical History Pertinent Past Medical History: Yes Neurological History: No Pertinent History ENT History: No Pertinent History Cardiac History: High Cholesterol Respiratory History: No Pertinent History Endocrine Medical History: No Pertinent History Musculoskeletal History: Arthritis, Degenerative Disk Disease, Other GI Medical History: No Pertinent History History: No Pertinent History Psycho-Social History: Anxiety Female Reproductive Disorders: No Pertinent History Other Medical History: side and back pain daily 5 degenerative disks,gout. Gout - Past Surgical History Past Surgical History: Yes Neuro Surgical History: No Pertinent History Cardiac: No Pertinent History Respiratory: No Pertinent History Gastrointestinal: No Pertinent History Genitourinary: No Pertinent History Musculoskeletal: Orthopedic Surgery Female Surgical History: Other Other Surgical History: back surgery, cyst off ovary,cyst off right breast Significant Family History: no pertinent family hx - Social History Smoking Status: Current every day smoker How long have you smoked: 39 years Exposure to second hand smoke: Yes Drug Use: none - Social Determinants of Health Will the patient participate in the screening: Yes Do you worry about a steady place to live?: No Do you have any problems with any of the following?: No known problems In the past 12 months,have you had to go without utilities?: No Transportation Issues: No Has anyone in your support network made you feel unsafe?: No Have you or anyone in your house had to go w/o enough food: No - Nursing Vital Signs Nursing Vital Signs: Initial Vital Signs Blood Pressure 142/93 02/06/25 21:49 Pain Scale Pain Intensity [Left Lower 10 Back] Pain Intensity 10 - Physical Exam General Appearance: mild distress Neck Exam: normal inspection, non-tender, supple, full range of motion Respiratory Exam: normal breath sounds, lungs clear, airway intact, No respiratory distress Cardiovascular Exam: regular rate/rhythm, capillary refill <2 sec Gastrointestinal Exam: soft, normal bowel sounds, tenderness (LLQ), guarding, No distention, No mass, No rebound Back Exam: normal inspection, muscle spasm, point tenderness, No vertebral tenderness, No rash Neurologic Exam: alert, oriented x 3, cooperative, normal mood/affect, nml cerebellar function, sensation nml, No motor deficits Skin Exam: normal color, warm, dry, No rash SpO2 Interpretation: normal SpO2: 94 O2 Delivery: Room Air - Course Nursing assessment & vital signs reviewed: Yes Ordered Tests: Active Orders 24 hr Category Date Time Status IV Insertion STAT Care 02/06/25 22:05 Completed Strain Urine .as ordered Care 02/06/25 22:05 Completed ABDOMEN AND PELVIS W/0 CONTRAS [CT] Stat Exams 02/06/25 22:08 Completed RECONSTRUCTION [CT] Stat Exams 02/06/25 22:06 Completed CBC W DIFF Stat Lab 02/06/25 23:05 Completed CMP Stat Lab 02/06/25 23:05 Completed Medication Summary Discontinued Medications Generic Name Dose Route Start Last Admin Trade Name Jazmin PRN Reason Stop Dose Admin Amoxicillin/Clavulanate Potassium 875 mg 02/07/25 00:01 02/07/25 00:32 Amox Tr/Potassium Clavulanate 875 Mg Tablet PO 02/07/25 00:02 875 mg STAT ONE Administration Amoxicillin/Clavulanate Potassium Confirm 02/07/25 00:32 Amox Tr/Potassium Clavulanate 875 Mg Tablet Administered 02/07/25 00:33 Dose 875 mg .ROUTE .STK-MED ONE Droperidol 1.25 mg 02/06/25 22:05 02/06/25 22:14 Droperidol 5 Mg/2 Ml Vial IV 02/06/25 22:06 1.25 mg STAT ONE Administration Droperidol Confirm 02/06/25 22:10 Droperidol 5 Mg/2 Ml Vial Administered 02/06/25 22:11 Dose 5 mg .ROUTE .STK-MED ONE Ketorolac Tromethamine 30 mg 02/06/25 22:05 02/06/25 22:14 Ketorolac Tromethamine 30 Mg/Ml Inj IV 02/06/25 22:06 30 mg STAT ONE Administration Ketorolac Tromethamine Confirm 02/06/25 22:10 Ketorolac Tromethamine 30 Mg/Ml Inj Administered 02/06/25 22:11 Dose 30 mg .ROUTE .STK-MED ONE Metronidazole 500 mg 02/07/25 00:02 02/07/25 00:32 Metronidazole 500 Mg Tablet PO 02/07/25 00:03 500 mg STAT ONE Administration Metronidazole Confirm 02/07/25 00:32 Metronidazole 500 Mg Tablet Administered 02/07/25 00:33 Dose 500 mg .ROUTE .STK-MED ONE Lab/Rad Data: Laboratory Result Diagrams 02/06/25 23:05 02/06/25 23:05 Laboratory Results 07/25/25 07/25/25 Range/Units 23:05 23:05 WBC 14.1 H (3.98-10.04) x10^3/uL RBC 4.98 (3.93-5.22) x10^6/uL Hgb 15.5 (11.2-15.7) g/dL Hct 46.5 H (34.1-44.9) % MCV 93.4 (79.4-94.8) fL MCH 31.1 (25.6-32.2) pg MCHC 33.3 (32.2-35.5) g/dL RDW 13.5 (11.7-14.4) % Plt Count 281 (182-369) x10^3/uL MPV 10.5 (9.4-12.3) fL Gran % 82.3 H (34.0-71.1) % Immature Gran % (Auto) 0.4 (0.001-0.429) % Nucleat RBC Rel Count 0.0 (0.00-0.2) % Eos # (Auto) 0.11 (0.04-0.36) x10^3/uL Immature Gran # (Auto) 0.06 H (0.001-0.031) x10^3u/L Absolute Lymphs (auto) 1.65 (1.18-3.74) x10^3/uL Absolute Monos (auto) 0.62 (0.24-0.86) x10^3/uL Absolute Nucleated RBC 0.00 (0.00-0.012) x10^3u/L Lymphocytes % 11.7 L (19.3-51.7) % Monocytes % 4.4 L (4.7-12.5) % Eosinophils % 0.8 (0.7-5.8) % Basophils % 0.4 (0.1-1.2) % Absolute Granulocytes 11.60 H (1.56-6.13) x10^3/uL Basophils # 0.06 (0.01-0.08) x10^3/uL Sodium 138 (135-145) mmol/L Potassium 3.7 (3.5-5.1) mmol/L Chloride 103 (98-107) mmol/L Carbon Dioxide 27 (22-30) mmol/L Anion Gap 11.3 (5-15) MEQ/L BUN 12 (7-17) mg/dL Creatinine 0.91 (0.52-1.04) mg/dL Estimated GFR 71.3 ML/MIN Glucose 132 H (74-106) mg/dL Calcium 9.8 (8.4-10.2) mg/dL Total Bilirubin 0.20 (0.2-1.3) mg/dL AST 25 (14-36) U/L ALT 18 (0-35) U/L Alkaline Phosphatase 91 (38-126) U/L Serum Total Protein 7.5 (6.3-8.2) g/dL Albumin 4.2 (3.5-5.0) g/dL - Progress Progress: improved Progress Note: WBC 14.1, CT shows signs of diverticulitis and ileus, lumbar spine shows ddd, foraminal stenosis and central canal stenosis. Started on Augmentin and Flagyl. Recommend follow up with PCP to start process in order to get MRI ordered so patient can see pain management. Advised decrease/stop [place] for constipation. Counseled pt/family regarding: lab results, diagnosis, need for follow-up, rad results Medical Desision Making - Diagnostic Testing Diagnostic test were ordered, analyzed, and reviewed by me: Yes Radiological Interpretation: Interpreted by me, Reviewed by me, Teleradiologist Report - Risk of complications The pt has a mod risk of morbidity or mortality based on: Need for prescription drug management - Departure Departure Disposition: Home Clinical Impression: Ileus, Left-sided back pain, Left flank pain, DDD (degenerative disc disease), lumbar, Foraminal stenosis of lumbar region, Central stenosis of spinal canal, Diverticulitis Condition: Stable Critical Care Time: No Referrals: [facility] [Primary Care Provider, [facility]] - Follow up/PCP as directed Instructions: Low Back Pain (DC), Diverticulitis Prescriptions: Amox Tr/Potass Clav. 875 mg [Augmentin 875-125 Tablet] 875 mg PO BID #20 tablet Metronidazole 500 mg [Flagyl 500 MG] 500 mg PO TID 10 Days #30 tablet
[2025-02-06] MEDS ORDERED: TORAdol 30 mg Injection ONE (22:10)
[2025-02-06] MEDS ORDERED: Inapsine 5 MG/2 ML ONE (22:10)
[2025-02-06] MEDS: TORAdol 30 mg Injection IV ONE (22:14)
[2025-02-06] MEDS: Inapsine 5 MG/2 ML IV ONE (22:14)
[2025-02-06 23:03] VITALS: RESP 18
[2025-02-06 23:20] LABS: BASOPHIL % 0.4 % (0.1-1.2); Basophil (Absolute #) 0.06 x10^3/uL (0.01-0.08); Eosinophil (Absolute #) 0.11 x10^3/uL (0.04-0.36); Hematocrit 46.5 % (34.1-44.9); Hemoglobin 15.5 g/dL (11.2-15.7); IMMATURE GRAN # 0.06 x10^3u/L (0.001-0.031); IMMATURE GRAN % 0.4 % (0.001-0.429); Lymphocyte (Absolute #) 1.65 x10^3/uL (1.18-3.74); Mean Corpuscular Hemoglobin 31.1 pg (25.6-32.2); Mean Corpuscular Hgb Concent. 33.3 g/dL (32.2-35.5); Monocyte (Absolute #) 0.62 x10^3/uL (0.24-0.86); NUCLEATED RBC # 0.00 x10^3u/L (0.00-0.012); NUCLEATED RBC % 0.0 % (0.00-0.2); Platelet Count 281 x10^3/uL (182-369); Red Blood Count 4.98 x10^6/uL (3.93-5.22); White Blood Count 14.1 x10^3/uL (3.98-10.04)
--- NOTE | 2025-02-06 23:27 | XRAY ---
CLINICAL HISTORY: abd pain COMPARISON: No prior studies available for comparison TECHNIQUE: Non-contrast CT of the abdomen and pelvis was performed, with the following protocol: axial images, and reconstructed coronal and sagittal images. No intravenous contrast was administered. One of the following dose reduction techniques was utilized for this exam: Automated exposure control, adjustment of the mA and/or kV according to patient size, and use of iterative reconstruction. FINDINGS: Abdomen: Liver: Normal in size, shape, and density. No focal lesions, cysts, or masses were identified. Small calcifications are seen likely granulomas. Gallbladder and Biliary System: The gallbladder is normal in size and shape. No wall thickening, pericholecystic fluid, or gallstones were identified. Pancreas: Pancreatic head, body, and tail are visualized and appear normal in size and density. No pancreatic masses or calcifications were noted. Spleen: Normal in size, shape, and density. No splenic lesions or masses were identified. Kidneys and Adrenal Glands: Both kidneys are normal in size, shape, and position. Cortical thickness is within normal limits. No renal calculi or hydronephrosis. Adrenal glands are unremarkable. Appendix: Unremarkable. Pelvis: Urinary Bladder: Normal in contour and wall thickness. No intraluminal lesions. Uterus: Normal in size and contour. No masses or abnormal thickening. Ovaries: Not well visualized but no gross abnormalities noted. Vagina: Normal in contour and wall thickness. Cervix: No evidence of mass or abnormal thickening. Peritoneal and Retroperitoneal Structures: No free fluid or abnormal fluid collections were identified within the abdomen or pelvis. No lymphadenopathy was noted. Bowel: Sigmoid diverticulosis, with mild wall thickening. No pericolonic fat-stranding. Distended ascending colon, up to 6.1 cm, with fecal loading. No abrupt transition point noted. The rest visualized bowel loops are normal in caliber and appearance. No evidence of bowel obstruction or wall thickening. Bones and Soft Tissues: Pelvic bones and soft tissues are unremarkable. No fractures or abnormal masses were identified. Degenerative changes in the spine. Visualized lungs: Atelectasis in both lungs. A 5 mm subpleural nodule in the right posterior lung base. Hiatal hernia. IMPRESSION: 1. Distended ascending colon, up to 6.1 cm, with fecal loading. No abrupt transition point noted. Findings may represent ileus. 2. Sigmoid diverticulosis, with mild wall thickening. No pericolonic fat-stranding. Likely a chronic colitis. 3. Hiatal hernia. 4. Clinical correlation and follow-up if warranted are advised. Electronically Signed by: Mehdi Hare MD. (02/06/2025 23:25:11 EDT)
[2025-02-06 23:32] LABS: Calcium 9.8 mg/dL (8.4-10.2); Carbon Dioxide 27.0 mmol/L (22-30); Creatinine 1 0.91 mg/dL (0.52-1.04); EST GLOMERULAR FILTRATION RATE 71.3 ML/MIN; Glucose 132.0 mg/dL (74-106); Potassium 3.7 mmol/L (3.5-5.1); SGOT/AST 25.0 U/L (14-36); SGPT/ALT 18.0 U/L (0-35); Total Protein 7.5 g/dL (6.3-8.2)
--- NOTE | 2025-02-06 23:53 | XRAY ---
CLINICAL HISTORY: back pain COMPARISON: No previous studies are available for comparison. TECHNIQUE: CT scan of the lumbar spine was performed without the administration of intravenous contrast. Contiguous axial images were obtained from the upper lumbar spine to the sacrum. Coronal and sagittal reformatted images were also reviewed. One of the following dose reduction techniques was utilized for this exam. Automated exposure control, adjustment of the mA and/or kV according to patient size, and use of iterative reconstruction. FINDINGS: Vertebrae: Mild anterior wedge defomity of L1 vertebral body likely degenerative. The rest of the vertebral bodies are normal in height. No evidence of acute fracture or dislocation. Marginal osteophytes are seen in the vertebral bodies. Intervertebral Discs: Moderate narrowing of the L1-L2 intervertebral disc space, with vacuum phenomenon, sclerosus of the endplate and disc bulge. A posterior disc-osteophyte complex is seen measuring about 5.8 mm causing moderate spinal canal and neural foraminal stenoses Disc bulges are seen in the rest of the lumbar disc spaces, causing mild spinal canal and neural foraminal stenoses, apart from the right L3-L4 neural foramen for which a moderate stenosis is seen with suspicious compression of the exiting nerve root. The intervertebral disc spaces are preserved. No evidence of significant disc bulging or herniation. No calcifications or ossifications noted within the discs. There is no significant disc pathology. No exiting nerve root or spinal cord compression. Normal morphology of the ligamentum flava. No arthropathy of the uncovertebral and zygapophyseal joints. No significant spinal canal and neural foraminal stenosis. Facet Joints: Multilevel facet arthropathy, contributing to the above mentioned neural foraminal stenosis. Paraspinal Soft Tissues: The paraspinal soft tissues are normal in appearance without evidence of mass or abnormal fluid collection. Additional Findings: No other significant findings are noted in the visualized soft tissue structures or bony elements. Please see dedicated CT abdomen pelvis for the intra-abdominal findings. IMPRESSION: 1. 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 2. No evidence of acute fracture or dislocation Electronically Signed by: Mehdi Hare MD. (02/06/2025 23:51:03 EDT)
[2025-02-07] MEDS: Flagyl 500 MG PO ONE (00:32)
[2025-02-07] MEDS: Augmentin 875-125 Tablet PO ONE (00:32)
[2025-02-07] MEDS ORDERED: Augmentin 875-125 Tablet ONE (00:32)
[2025-02-07] MEDS ORDERED: Flagyl 500 MG ONE (00:32)
[2025-02-07 01:04] VITALS: BP 126/93; PULSE 80
[2025-02-07 02:36] VITALS: O2SAT 94
== END 2025-02-07 01:07 | disposition home or self-care (01) ==
LOC: ED 21:46
DX: K56.7 Ileus, unspecified (principal); M54.50 Low back pain, unspecified; R10.9 Unspecified abdominal pain; M51.369 Other intervertebral disc degeneration, lumbar region without mention of lumbar back pain or lower extremity pain; M48.061 Spinal stenosis, lumbar region without neurogenic claudication; K57.92 Diverticulitis of intestine, part unspecified, without perforation or abscess without bleeding; Z79.899 Other long term (current) drug therapy; Z72.0 Tobacco use